=== PATIENT | male | born 1990 | race Caucasian/White ===

== ENCOUNTER → 2019-01-11 12:48 | Outpatient (CLI) | payer OTHER, SELFPAY ==
--- NOTE | 2019-01-11 | DI.RAD.S_ITS ---
PROCEDURE: XR WRIST LT MIN 3V INDICATIONS: FALL AT WORK TECHNIQUE: 4 views of the wrist were acquired. COMPARISON: None. FINDINGS: Bones: No fractures or dislocations. No suspicious bony lesions. Scaphoid view: No trauma. Soft tissues: No suspicious soft tissue calcifications. IMPRESSION: No trauma found. Dictated by: Maverick Chang M.D. on 01/11/2019 at 14:13 Approved by: Maverick Chang M.D. on 01/11/2019 at 14:13
--- NOTE | 2019-01-11 | DI.RAD.S_ITS ---
PROCEDURE: XR RIBS LT MIN 3V W CXR1V INDICATIONS: FALL AT WORK TECHNIQUE: 2 views of the left ribs were acquired, along with a single view chest. COMPARISON: None. FINDINGS: Surgical changes and devices: None. Bones and chest wall: No fractures or dislocations. No suspicious bony lesions. Overlying soft tissues appear unremarkable. Lungs and pleura: No pleural effusions or pneumothorax. Lungs appear clear. Mediastinum: Mediastinal contours appear normal. Heart size is normal. IMPRESSION: No trauma found. Dictated by: Maverick Chang M.D. on 01/11/2019 at 14:13 Approved by: Maverick Chang M.D. on 01/11/2019 at 14:14
--- NOTE | 2019-01-11 | DI.RAD.S_ITS ---
PROCEDURE: XR HAND LT MIN 3V INDICATIONS: FALL AT WORK TECHNIQUE: 3 views of the hand(s) acquired. COMPARISON: None. FINDINGS: Bones: No fractures or dislocations. Carpal bones are normally aligned. No suspicious bony lesions. Soft tissues: No suspicious soft tissue calcifications. IMPRESSION: No trauma found. Dictated by: Maverick Chang M.D. on 01/11/2019 at 14:14 Approved by: Maverick Chang M.D. on 01/11/2019 at 14:14
== END ==
PROVIDERS: Visit Provider Family Medicine
DX: T14.90XA Injury, unspecified, initial encounter (principal); R07.81 Pleurodynia; M25.532 Pain in left wrist; R06.89 Other abnormalities of breathing; W19.XXXA Unspecified fall, initial encounter
CPT/HCPCS: 71101; 73110; 73130

== ENCOUNTER → 2019-01-29 08:38 | Outpatient (CLI) | payer OTHER, SELFPAY ==
--- NOTE | 2019-01-29 | DI.MRI.S_ITS ---
PROCEDURE: MR WRIST LT WO CON INDICATIONS: LEFT WRIST STRAIN TECHNIQUE: Noncontrast coronal proton density fast spin echo and T2 fast spin echo with fat saturation; coronal 3-D gradient echo, axial T1 spin echo and T2 fast spin echo with fat saturation, sagittal T1 spin echo through the wrist. COMPARISON: [facility], CR, XR HAND LT MIN 3V, 01/11/2019, 13:02. FINDINGS: Image quality: Excellent. Bones and cartilage: The carpal bones are normally aligned. There is no edema within the hamate, and a linear low signal signal change involving the distal hamate extending to the distal articular surface on image 7 series 5, probably representing incomplete nondisplaced fracture (radiographically occult). There is also marrow edema present within the triquetral although no definite fracture line and this suggests marrow contusion No evidence for avascular necrosis. Overlying cartilage surfaces appear normal. Carpal ligaments: The scapholunate and lunotriquetral ligaments appear intact. In the absence of intra-articular contrast, the extrinsic carpal ligaments are not well identified. On sagittal images, the pisohamate ligament appears intact. Triangular fibrocartilage complex: The triangular fibrocartilage appears intact. The adjacent meniscal homolog appears normal in the absence of intra-articular contrast. The extensor carpi ulnaris tendon is normal in location and morphology. Tendons and soft tissues: The carpal tunnel structures appear normal, including the median nerve. The ulnar nerve appears normal within Guyon's canal. All six extensor tendon compartments demonstrate normal morphology, without pathologic tendon sheath fluid. No soft tissue ganglion cysts. IMPRESSION: Incomplete nondisplaced fracture involving the distal hamate, with associated marrow edema Acute marrow contusion of the triquetral Intact appearance of the TFCC Dictated by: Feliciano Rendon M.D. on 01/31/2019 at 9:57 Approved by: Feliciano Rendon M.D. on 01/31/2019 at 10:03
== END ==
PROVIDERS: PCP Family Medicine; Visit Provider Family Medicine
DX: S62.145A Nondisplaced fracture of body of hamate [unciform] bone, left wrist, initial encounter for closed fracture (principal); X58.XXXA Exposure to other specified factors, initial encounter
CPT/HCPCS: 73221

== ENCOUNTER → 2019-02-21 10:58 | Outpatient (CLI) | payer OTHER, SELFPAY ==
--- NOTE | 2019-02-21 | DI.RAD.S_ITS ---
PROCEDURE: XR WRIST LT MIN 3V INDICATIONS: Left WRIST FRACTURE TECHNIQUE: 4 views of the wrist were acquired. COMPARISON: [facility], MR, MR WRIST LT WO CON, 01/29/2019, 8:46. [facility], CR, XR WRIST LT MIN 3V, 01/11/2019, 13:02. FINDINGS: Bones: Previously identified hamate fracture is not well characterized on x-ray. Scaphoid view: No scaphoid fracture. Soft tissues: No suspicious soft tissue calcifications. IMPRESSION: Previously identified hamate fracture is not well characterized on x-ray. Dictated by: Azucena Lee M.D. on 02/21/2019 at 14:31 Approved by: Azucena Lee M.D. on 02/21/2019 at 14:32
== END ==
PROVIDERS: PCP Family Medicine; Visit Provider Family Medicine
DX: M25.532 Pain in left wrist (principal); S62.142A Displaced fracture of body of hamate [unciform] bone, left wrist, initial encounter for closed fracture; X58.XXXA Exposure to other specified factors, initial encounter
CPT/HCPCS: 73110

== ENCOUNTER → 2020-01-02 14:34 | Outpatient (CLI) | payer OTHER, SELFPAY ==
[2020-01-02 15:58] LABS: COVID19 -Nasal RAPID Negative (Negative)
== END ==
PROVIDERS: PCP Family Medicine; Referring Provider Family Medicine; Visit Provider Family Medicine
DX: Z03.818 Encounter for observation for suspected exposure to other biological agents ruled out (principal)
CPT/HCPCS: 87635

== ENCOUNTER → 2020-01-05 10:21 | Outpatient (CLI) | payer OTHER, SELFPAY ==
[2020-01-05 14:00] LABS: COVID19 -Nasal RAPID Negative (Negative)
== END ==
PROVIDERS: PCP Family Medicine; Referring Provider Family Medicine; Visit Provider Family Medicine
DX: Z03.818 Encounter for observation for suspected exposure to other biological agents ruled out (principal)
CPT/HCPCS: 87635

== ENCOUNTER → 2020-06-22 13:51 | Outpatient (ROUT) | payer OTHER, SELFPAY ==
[2020-06-22 15:12] LABS: COVID19 -Nasal RAPID Negative (Negative)
== END ==
PROVIDERS: PCP Family Medicine; Visit Provider Family Medicine
DX: Z20.822 Contact with and (suspected) exposure to COVID-19 (principal)
CPT/HCPCS: 87635